=== PATIENT | female | born 1985 | race American Indian/Alaskan Native ===

== ENCOUNTER 2017-11-05 10:11 | Outpatient (CLI) | payer BC | END 2017-11-05 10:12 | disposition home or self-care (01) | LOC: LAB 10:11 | PROVIDERS: ATTEND Internal Medicine | DX: Z11.1 Encounter for screening for respiratory tuberculosis (principal) | CPT/HCPCS: 36415; 82164 ==

== ENCOUNTER 2018-05-14 15:21 | Outpatient (CLI) | payer BC | END 2018-05-14 15:22 | disposition home or self-care (01) | LOC: LABHHL 15:21 | PROVIDERS: ATTEND Obstetrics & Gynecology | DX: Z03.89 Encounter for observation for other suspected diseases and conditions ruled out (principal) | CPT/HCPCS: 88305 ==